=== PATIENT | male | born 1955 | race Caucasian/White ===

== ENCOUNTER 2017-08-23 06:39 | Inpatient (IN) | payer MEDICAID ==
[~2017-08-23] VITALS: Ht 167.6 cm; Wt 94.1 kg
[~2017-08-23 06:39] MED LIST: ALDACTONE25 MG PO; ASPIRIN ADULT L81 M4 PO; ATORVASTATIN CA40 M1 PO; CARVEDILOL12.5 M1 PO; COUMADIN4 MG PO; GLIPIZIDE AND M1 TA1 PO; INVOKANA100 MG PO; LANTUS SOLOS100 U/M1; LANTUS SOLOS100 U/M1 SC; LANTUS SOLOS100 U/M1 SQ; LASIX40 MG PO; LOVAZA1 G1 PO; METFORMIN HCL500 MG PO; MICRO-K10 MEQ PO; NEURONTIN100 MG PO; UNA3I IV; XARELTO20 M1 PO; ZESTRIL5 MG PO
[2017-08-23 07:45] LABS: PLATELET COUNT 329 x10^3mcL (130-400)
[2017-08-23 07:47] LABS: RED CELL DISTRIBUTION WIDTH 16.9 % (11.5-14.5)
[2017-08-23 08:11] LABS: BAND NEUTROPHIL 8 % (0-10); BASOPHIL 0 % (0-2); BILIRUBIN TOTAL 0.63 mg/dL (0.20-1.00); CALCIUM 10.3 mg/dL (8.5-10.1); CARBON DIOXIDE 23.1 mmol/L (21-32); CREATININE SERUM 1.8 mg/dL (0.7-1.3); MONOCYTE 2 % (0-7); POTASSIUM SERUM 4.3 mmol/L (3.5-5.1); SEGMENTED NEUTROPHILS 78 % (37-75)
[2017-08-23 08:12] LABS: PLATELET MORPHOLOGY PLATELETS INCREASED; rbc morphology (normal/abnorm) ABNORMAL (NORMAL)
[2017-08-23 08:22] LABS: ALBUMIN 1.9 g/dL (3.4-5.0); TOTAL PROTEIN, SERUM 8.6 g/dL (6.4-8.2)
[2017-08-23 11:31] LABS: MAGNESIUM 1.1 mg/dL (1.8-2.4)
[2017-08-23 11:33] LABS: CHOLESTEROL/HDL RATIO 3.2
[2017-08-23 11:39] LABS: T3 TOTAL 0.54 ng/mL
[2017-08-23 11:40] LABS: FREE T4 1.11 ng/dL (0.76-1.46); FREE THYROXINE INDEX 1.8 ug/dL (1.4-4.5)
[2017-08-23 11:57] LABS: microscopic required? YES; urine erythrocyte TRACE (NEGATIVE)
[2017-08-23 12:12] LABS: AMPHETAMINE QUAL UR NONE DETECTED (NEG <=1000)
[2017-08-23 13:58] VITALS: BP 129/79
[2017-08-23 15:41] VITALS: BP 142/82
[2017-08-23 17:46] VITALS: BP 124/64
[2017-08-23 20:59] VITALS: BP 125/70
[2017-08-24 05:48] VITALS: BP 146/74
[2017-08-24 07:54] LABS: CALCIUM 9.2 mg/dL (8.5-10.1); CARBON DIOXIDE 25.6 mmol/L (21-32); CREATININE SERUM 1.4 mg/dL (0.7-1.3); MAGNESIUM 2.4 mg/dL (1.8-2.4); PHOSPHOROUS 1.9 mg/dL (2.5-4.9); POTASSIUM SERUM 4.8 mmol/L (3.5-5.1)
[2017-08-24 07:58] LABS: BASOPHIL % 0.4 % (0-2); PLATELET COUNT 268 x10^3mcL (130-400)
[2017-08-24 08:01] LABS: RED CELL DISTRIBUTION WIDTH 16.7 % (11.5-14.5)
[2017-08-24 10:46] VITALS: BP 127/89
[2017-08-24 14:15] VITALS: BP 119/60
[2017-08-24 18:15] VITALS: BP 117/64
[2017-08-24 21:04] VITALS: BP 117/60
[2017-08-25 05:34] VITALS: BP 112/61
[2017-08-25 07:16] LABS: BASOPHIL % 0.4 % (0-2); PLATELET COUNT 275 x10^3mcL (130-400)
[2017-08-25 07:18] LABS: RED CELL DISTRIBUTION WIDTH 16.6 % (11.5-14.5)
[2017-08-25 07:27] LABS: CALCIUM 8.7 mg/dL (8.5-10.1); CARBON DIOXIDE 30.2 mmol/L (21-32); CREATININE SERUM 1.3 mg/dL (0.7-1.3); POTASSIUM SERUM 4.8 mmol/L (3.5-5.1)
[2017-08-25 08:57] VITALS: BP 114/66
[2017-08-25 14:12] VITALS: BP 94/52
[2017-08-25 17:50] VITALS: BP 91/52
[2017-08-25 21:15] VITALS: BP 104/57
[2017-08-26 05:15] VITALS: BP 103/78
[2017-08-26 07:00] LABS: BASOPHIL % 0.3 % (0-2); PLATELET COUNT 265 x10^3mcL (130-400)
[2017-08-26 07:06] LABS: CALCIUM 8.6 mg/dL (8.5-10.1); CARBON DIOXIDE 29.6 mmol/L (21-32); CREATININE SERUM 1.4 mg/dL (0.7-1.3); PHOSPHOROUS 2.8 mg/dL (2.5-4.9); POTASSIUM SERUM 5.4 mmol/L (3.5-5.1)
[2017-08-26 09:45] VITALS: BP 110/65
[2017-08-26 20:54] VITALS: BP 101/68
[2017-08-27 05:48] VITALS: BP 91/65
[2017-08-27 06:45] LABS: BASOPHIL % 0.5 % (0-2); PLATELET COUNT 256 x10^3mcL (130-400)
[2017-08-27 06:52] LABS: RED CELL DISTRIBUTION WIDTH 16.7 % (11.5-14.5)
[2017-08-27 09:38] VITALS: BP 96/52
[2017-08-27 18:19] VITALS: BP 105/58
[2017-08-27 22:06] VITALS: BP 110/60
[2017-08-28 05:45] VITALS: BP 101/60
[2017-08-28 09:29] LABS: BASOPHIL % 0.9 % (0-2); PLATELET COUNT 257 x10^3mcL (130-400)
[2017-08-28 09:33] LABS: RED CELL DISTRIBUTION WIDTH 17.1 % (11.5-14.5)
[2017-08-28 10:47] VITALS: BP 116/76
[2017-08-28 17:31] VITALS: BP 127/63
[2017-08-28 21:46] VITALS: BP 91/53
[2017-08-29 06:19] VITALS: BP 97/68
[2017-08-29 10:18] VITALS: BP 107/68
[2017-08-29 11:23] VITALS: Ht 167.6 cm; Wt 94.1 kg
[2017-08-29 18:05] VITALS: BP 93/57
[2017-08-29 20:49] VITALS: BP 105/61
[2017-08-30 05:23] VITALS: BP 107/63
[2017-08-30 07:40] LABS: BASOPHIL % 0.5 % (0-2); PLATELET COUNT 214 x10^3mcL (130-400)
[2017-08-30 07:57] LABS: RED CELL DISTRIBUTION WIDTH 17.3 % (11.5-14.5)
[2017-08-30 10:55] VITALS: BP 99/69
[2017-08-30 17:45] VITALS: BP 113/71
[2017-08-30 22:06] VITALS: BP 98/65
[2017-08-31 05:53] VITALS: BP 115/79
[2017-08-31 08:24] LABS: CALCIUM 8.5 mg/dL (8.5-10.1); CARBON DIOXIDE 26.2 mmol/L (21-32); CHLORIDE SERUM 104 mmol/L (98-107); CREATININE SERUM 0.9 mg/dL (0.7-1.3); GFR1 > 60 mL/min; GLUCOSE SERUM 84 mg/dL (74-106); SODIUM SERUM 137 mmol/L (136-145)
[2017-08-31 09:58] VITALS: BP 130/81
[2017-08-31 16:59] VITALS: BP 100/65
[2017-08-31 21:21] VITALS: BP 107/62
[2017-09-01 06:40] VITALS: BP 97/65
[2017-09-01 09:08] VITALS: BP 110/71
[2017-09-01 13:42] VITALS: BP 87/50
[2017-09-01 16:58] VITALS: BP 99/68
[2017-09-01 20:21] VITALS: BP 112/68
[2017-09-02 06:26] VITALS: BP 105/67
[2017-09-02 06:47] LABS: BASOPHIL % 0.7 % (0-2); PLATELET COUNT 278 x10^3mcL (130-400)
[2017-09-02 07:18] LABS: RED CELL DISTRIBUTION WIDTH 16.9 % (11.5-14.5)
[2017-09-02 10:07] VITALS: BP 111/66
[2017-09-02 17:45] VITALS: BP 101/66
[2017-09-02 21:01] VITALS: BP 109/62
[2017-09-03 05:37] VITALS: BP 91/64
[2017-09-03 10:01] VITALS: BP 107/64
[2017-09-03 17:25] VITALS: BP 123/69
[2017-09-04 09:23] VITALS: BP 129/74
[2017-09-04 16:16] VITALS: BP 116/72
[2017-09-04] MEDS ORDERED: LEV250 PO (17:06)
[2017-09-04] MEDS ORDERED: ZINC SULFATE220 MG PO (17:08)
[2017-09-04] MEDS ORDERED: CLINDAMYCIN HC300 MG PO (17:08)
[2017-09-04] MEDS ORDERED: SIMETHICONE80 MG CH (17:09)
[2017-09-04] MEDS ORDERED: LAC PO (17:09)
[2017-09-04] MEDS ORDERED: VITC PO (17:10)
[2017-09-04 17:25] VITALS: BP 116/72
[2017-09-04] MEDS ORDERED: COUMADIN2 MG PO (17:42)
== END 2017-09-04 20:37 | DRG 710 ==
LOC: ED 06:39 → DU 09:41 → MU 09:41 → DU 10:59 → MU 08-26 10:02
PROVIDERS: Emergency Medicine; Student in an Organized Health Care Education/Training Program; ADMIT Family Medicine
PROC: 0QBH0ZZ Excision of Left Tibia, Open Approach (ICD-10-PCS; 2017-08-24)
PROC: 0QBG0ZZ Excision of Right Tibia, Open Approach (ICD-10-PCS; principal; 2017-08-24 12:00)
DX: A41.9 Sepsis, unspecified organism (principal); N17.0 Acute kidney failure with tubular necrosis; E43 Unspecified severe protein-calorie malnutrition; D68.69 Other thrombophilia; E11.42 Type 2 diabetes mellitus with diabetic polyneuropathy; E11.621 Type 2 diabetes mellitus with foot ulcer; E11.65 Type 2 diabetes mellitus with hyperglycemia; L03.115 Cellulitis of right lower limb; L03.116 Cellulitis of left lower limb; B96.89 Other specified bacterial agents as the cause of diseases classified elsewhere; B95.61 Methicillin susceptible Staphylococcus aureus infection as the cause of diseases classified elsewhere; L97.414 Non-pressure chronic ulcer of right heel and midfoot with necrosis of bone; L97.524 Non-pressure chronic ulcer of other part of left foot with necrosis of bone; M86.9 Osteomyelitis, unspecified; E87.1 Hypo-osmolality and hyponatremia; I48.91 Unspecified atrial fibrillation; E83.42 Hypomagnesemia; E83.39 Other disorders of phosphorus metabolism; R65.20 Severe sepsis without septic shock; E86.0 Dehydration; I87.2 Venous insufficiency (chronic) (peripheral); F32.9 Major depressive disorder, single episode, unspecified; I87.8 Other specified disorders of veins; D64.9 Anemia, unspecified; E66.9 Obesity, unspecified; Z68.33 Body mass index [BMI] 33.0-33.9, adult; Z79.4 Long term (current) use of insulin; Z91.14 Patient's other noncompliance with medication regimen
CPT/HCPCS: 36600; 82962; 83880; 84439; 94150; 97110-GP; 97116-GP; 97139; 97530-GP; 97542-GP; J0690; J0696; J0713; J1815; J1956; J2250; J2704; J3010; J3475; J3490; J7030; Q0092

== ENCOUNTER 2017-09-11 18:06 | Inpatient (IN) | payer MEDICAID ==
[~2017-09-11] VITALS: Ht 167.6 cm; Wt 99.3 kg
[~2017-09-11 18:06] MED LIST changes: +CLINDAMYCIN HC300 MG PO; +COUMADIN2 MG PO; +LAC PO; +LEV250 PO; +SIMETHICONE80 MG CH; +VITC PO; +ZINC SULFATE220 MG PO
[2017-09-11 20:45] LABS: BASOPHIL % 1.7 % (0-2); PLATELET COUNT 305 x10^3mcL (130-400)
[2017-09-11 20:47] LABS: RED CELL DISTRIBUTION WIDTH 19.4 % (11.5-14.5)
[2017-09-11 20:52] LABS: BILIRUBIN TOTAL 0.4 mg/dL (0.20-1.00); C REACTIVE PROTEIN 8.3 mg/dL (<=0.9); CALCIUM 9.7 mg/dL (8.5-10.1); CREATININE SERUM 1.3 mg/dL (0.7-1.3); POTASSIUM SERUM 4.3 mmol/L (3.5-5.1); TOTAL PROTEIN, SERUM 7.5 g/dL (6.4-8.2)
[2017-09-11 20:53] LABS: ALBUMIN 1.9 g/dL (3.4-5.0)
[2017-09-11 20:55] LABS: CARBON DIOXIDE 41.5 mmol/L (21-32)
[2017-09-11] MEDS ORDERED: PROZ10 PO (21:09)
[2017-09-11] MEDS ORDERED: NYSTATIN1 EAC1 TOP (21:10)
[2017-09-11] MEDS ORDERED: FERROUS SULFAT325 M2 PO (21:10)
[2017-09-11] MEDS ORDERED: PROSTATE HEALT1 EACH PO (21:11)
[2017-09-11] MEDS ORDERED: TYLENOL325 M1 PO (21:13)
[2017-09-11] MEDS ORDERED: ZESTRIL5 MG PO (21:14)
[2017-09-11] MEDS ORDERED: COREG12.5 MG PO (21:14)
[2017-09-11] MEDS ORDERED: ALDACTONE25 MG PO (21:15)
[2017-09-11] MEDS ORDERED: NEURONTIN100 MG PO (21:15)
[2017-09-11] MEDS ORDERED: FLORASTOR1 CAP PO (21:16)
[2017-09-11] MEDS ORDERED: INVOKANA100 MG PO (21:16)
[2017-09-11] MEDS ORDERED: CLEOCIN HCL300 MG PO (21:17)
[2017-09-11] MEDS ORDERED: LEVAQUIN750 MG PO (21:17)
[2017-09-11] MEDS ORDERED: FISH OIL1000 MG PO (21:18)
[2017-09-11] MEDS ORDERED: ASPIR 8181 MG PO (21:18)
[2017-09-11] MEDS ORDERED: LANTUS SOLOS100 U/M1 SQ (21:19)
[2017-09-11 21:43] LABS: T3 TOTAL 0.78 ng/mL
[2017-09-11 21:51] LABS: MAGNESIUM 1.6 mg/dL (1.8-2.4)
[2017-09-11 21:59] LABS: CHOLESTEROL/HDL RATIO 2.3
[2017-09-11 22:20] LABS: FREE T4 0.99 ng/dL (0.76-1.46); FREE THYROXINE INDEX 2.3 ug/dL (1.4-4.5); T4(THYROXINE) 5.9 ug/dL (4.7-13.3)
[2017-09-11 22:21] VITALS: BP 100/51
[2017-09-12 05:31] VITALS: BP 107/64
[2017-09-12 07:29] LABS: BASOPHIL % 0.9 % (0-2); PLATELET COUNT 285 x10^3mcL (130-400)
[2017-09-12 07:30] LABS: RED CELL DISTRIBUTION WIDTH 19.3 % (11.5-14.5)
[2017-09-12 07:48] LABS: CALCIUM 10.3 mg/dL (8.5-10.1); CARBON DIOXIDE 38.4 mmol/L (21-32); CREATININE SERUM 1.4 mg/dL (0.7-1.3); POTASSIUM SERUM 5.5 mmol/L (3.5-5.1)
[2017-09-12 09:27] VITALS: BP 107/66
[2017-09-12 13:35] VITALS: BP 116/59
[2017-09-12 17:59] VITALS: BP 114/64
[2017-09-12 20:28] VITALS: BP 117/71
[2017-09-13 06:06] VITALS: BP 105/61
[2017-09-13 07:35] LABS: BASOPHIL % 1.9 % (0-2); PLATELET COUNT 235 x10^3mcL (130-400)
[2017-09-13 07:43] LABS: RED CELL DISTRIBUTION WIDTH 18.9 % (11.5-14.5)
[2017-09-13 08:14] LABS: CALCIUM 9.4 mg/dL (8.5-10.1); CARBON DIOXIDE 33.6 mmol/L (21-32); CHLORIDE SERUM 99 mmol/L (98-107); GFR1 > 60 mL/min; GLUCOSE SERUM 136 mg/dL (74-106); MAGNESIUM 1.6 mg/dL (1.8-2.4); POTASSIUM SERUM 4.7 mmol/L (3.5-5.1); SODIUM SERUM 136 mmol/L (136-145)
[2017-09-13 09:34] VITALS: BP 100/64
[2017-09-13 13:23] VITALS: BP 102/65
[2017-09-13 17:19] VITALS: BP 97/61
[2017-09-13 21:09] VITALS: BP 100/69
[2017-09-14 03:00] LABS: CALCIUM 9.4 mg/dL (8.5-10.1); CARBON DIOXIDE 32.1 mmol/L (21-32); CHLORIDE SERUM 100 mmol/L (98-107); CREATININE SERUM 1.1 mg/dL (0.7-1.3); GFR1 > 60 mL/min; GLUCOSE SERUM 173 mg/dL (74-106); MAGNESIUM 1.9 mg/dL (1.8-2.4); POTASSIUM SERUM 4.8 mmol/L (3.5-5.1); SODIUM SERUM 136 mmol/L (136-145)
[2017-09-14 03:06] LABS: PLATELET COUNT 242 x10^3mcL (130-400)
[2017-09-14 03:07] LABS: RED CELL DISTRIBUTION WIDTH 17.5 % (11.5-14.5)
[2017-09-14 06:08] VITALS: BP 109/64
[2017-09-14 09:13] VITALS: BP 101/73
[2017-09-14 09:51] LABS: RED BLOOD CELLS 3.4 M/mm3 (4.52-5.90)
[2017-09-14 10:32] LABS: IRON 38 ug/dL (65-170)
[2017-09-14 10:41] LABS: TOTAL IRON BINDING CAPACITY 240 ug/dL (250-450)
[2017-09-14 12:02] VITALS: BP 103/65
[2017-09-14 16:08] VITALS: BP 113/76
[2017-09-14 21:26] VITALS: BP 102/68
[2017-09-15 06:44] VITALS: BP 104/65
[2017-09-15 07:10] LABS: PLATELET COUNT 226 x10^3mcL (130-400)
[2017-09-15 07:28] LABS: CALCIUM 9.4 mg/dL (8.5-10.1); CHLORIDE SERUM 100 mmol/L (98-107); CREATININE SERUM 1.1 mg/dL (0.7-1.3); GFR1 > 60 mL/min; GLUCOSE SERUM 110 mg/dL (74-106); PHOSPHOROUS 3.5 mg/dL (2.5-4.9); POTASSIUM SERUM 4.9 mmol/L (3.5-5.1); SODIUM SERUM 137 mmol/L (136-145)
[2017-09-15 08:35] LABS: RED CELL DISTRIBUTION WIDTH 18.9 % (11.5-14.5)
[2017-09-15 10:07] VITALS: BP 109/63
[2017-09-15 14:17] VITALS: BP 85/57
[2017-09-15 17:15] VITALS: BP 104/70
[2017-09-15 21:40] VITALS: BP 97/62
[2017-09-16 05:30] VITALS: BP 110/68
[2017-09-16 07:31] LABS: BASOPHIL % 1.2 % (0-2); PLATELET COUNT 230 x10^3mcL (130-400)
[2017-09-16 07:36] LABS: RED CELL DISTRIBUTION WIDTH 18.8 % (11.5-14.5)
[2017-09-16 07:49] LABS: CARBON DIOXIDE 32.2 mmol/L (21-32); CHLORIDE SERUM 101 mmol/L (98-107); CREATININE SERUM 1.1 mg/dL (0.7-1.3); GFR1 > 60 mL/min; GLUCOSE SERUM 103 mg/dL (74-106); PHOSPHOROUS 3.4 mg/dL (2.5-4.9); POTASSIUM SERUM 4.6 mmol/L (3.5-5.1); SODIUM SERUM 138 mmol/L (136-145)
[2017-09-16 09:13] VITALS: BP 112/65
[2017-09-16 13:54] VITALS: BP 114/59
[2017-09-16 21:32] VITALS: BP 102/59
[2017-09-17 06:14] VITALS: BP 119/68
[2017-09-17 06:43] LABS: BASOPHIL % 0.9 % (0-2); PLATELET COUNT 250 x10^3mcL (130-400)
[2017-09-17 06:52] LABS: RED CELL DISTRIBUTION WIDTH 18.8 % (11.5-14.5)
[2017-09-17 09:17] VITALS: BP 103/63
[2017-09-17 21:18] VITALS: BP 114/71
[2017-09-18 06:20] VITALS: BP 115/70
[2017-09-18 09:10] VITALS: BP 122/75
[2017-09-18 17:05] VITALS: BP 132/72
[2017-09-18 21:04] VITALS: BP 100/62
[2017-09-19 04:28] LABS: PLATELET COUNT 288 x10^3mcL (130-400)
[2017-09-19 04:33] LABS: RED CELL DISTRIBUTION WIDTH 19.1 % (11.5-14.5)
[2017-09-19 04:35] LABS: CALCIUM 9.1 mg/dL (8.5-10.1); CARBON DIOXIDE 30.2 mmol/L (21-32); CHLORIDE SERUM 101 mmol/L (98-107); GFR1 > 60 mL/min; GLUCOSE SERUM 79 mg/dL (74-106); PHOSPHOROUS 2.6 mg/dL (2.5-4.9); POTASSIUM SERUM 4.5 mmol/L (3.5-5.1); SODIUM SERUM 137 mmol/L (136-145)
[2017-09-19 05:33] VITALS: BP 133/72
[2017-09-19 09:03] VITALS: BP 124/80
[2017-09-19 13:35] VITALS: BP 120/72
[2017-09-19 18:40] VITALS: BP 118/70
[2017-09-19 22:26] VITALS: BP 113/47; BP 124/70
[2017-09-20 04:16] LABS: CALCIUM 9.1 mg/dL (8.5-10.1); CARBON DIOXIDE 30.8 mmol/L (21-32); CHLORIDE SERUM 101 mmol/L (98-107); CREATININE SERUM 1.1 mg/dL (0.7-1.3); GFR1 > 60 mL/min; GLUCOSE SERUM 141 mg/dL (74-106); PHOSPHOROUS 2.9 mg/dL (2.5-4.9); POTASSIUM SERUM 4.7 mmol/L (3.5-5.1); SODIUM SERUM 138 mmol/L (136-145)
[2017-09-20 04:32] LABS: BASOPHIL % 0.9 % (0-2); PLATELET COUNT 300 x10^3mcL (130-400)
[2017-09-20 05:39] VITALS: BP 139/75
[2017-09-20 09:00] VITALS: BP 119/72
[2017-09-20 23:02] VITALS: BP 115/73
[2017-09-21 06:38] VITALS: BP 117/76
[2017-09-21 07:06] LABS: BASOPHIL % 0.9 % (0-2); PLATELET COUNT 312 x10^3mcL (130-400)
[2017-09-21 07:12] LABS: RED CELL DISTRIBUTION WIDTH 19.7 % (11.5-14.5)
[2017-09-21 07:35] LABS: CALCIUM 9.2 mg/dL (8.5-10.1); CARBON DIOXIDE 30.7 mmol/L (21-32); CHLORIDE SERUM 102 mmol/L (98-107); GFR1 > 60 mL/min; GLUCOSE SERUM 85 mg/dL (74-106); PHOSPHOROUS 2.8 mg/dL (2.5-4.9); POTASSIUM SERUM 4.6 mmol/L (3.5-5.1); SODIUM SERUM 140 mmol/L (136-145)
[2017-09-21 09:30] VITALS: BP 112/66
[2017-09-21 18:30] VITALS: BP 106/69
[2017-09-21 21:55] VITALS: BP 111/73
[2017-09-21 23:11] LABS: microscopic required? NO
[2017-09-21 23:22] LABS: urine erythrocyte NEGATIVE (NEGATIVE)
[2017-09-21 23:31] LABS: AMPHETAMINE QUAL UR NONE DETECTED (NEG <=1000)
[2017-09-22 05:04] VITALS: BP 98/64
[2017-09-22 07:43] LABS: BASOPHIL % 0.8 % (0-2); PLATELET COUNT 316 x10^3mcL (130-400)
[2017-09-22 07:45] LABS: RED CELL DISTRIBUTION WIDTH 19.5 % (11.5-14.5)
[2017-09-22 07:59] LABS: CALCIUM 9.4 mg/dL (8.5-10.1); CHLORIDE SERUM 102 mmol/L (98-107); CREATININE SERUM 1.1 mg/dL (0.7-1.3); GFR1 > 60 mL/min; GLUCOSE SERUM 146 mg/dL (74-106); PHOSPHOROUS 2.9 mg/dL (2.5-4.9); POTASSIUM SERUM 4.4 mmol/L (3.5-5.1); SODIUM SERUM 139 mmol/L (136-145)
[2017-09-22 09:10] VITALS: BP 107/70
[2017-09-22 17:12] VITALS: BP 124/76
[2017-09-22 21:38] VITALS: BP 121/71
[2017-09-23 00:30] VITALS: BP 121/71
[2017-09-23 05:46] VITALS: BP 94/60
[2017-09-23 06:29] LABS: BASOPHIL % 0.7 % (0-2); PLATELET COUNT 295 x10^3mcL (130-400)
[2017-09-23 06:52] LABS: RED CELL DISTRIBUTION WIDTH 19.3 % (11.5-14.5)
[2017-09-23 06:53] LABS: CALCIUM 8.5 mg/dL (8.5-10.1); CARBON DIOXIDE 30.5 mmol/L (21-32); CREATININE SERUM 1.4 mg/dL (0.7-1.3); MAGNESIUM 1.9 mg/dL (1.8-2.4); PHOSPHOROUS 3.2 mg/dL (2.5-4.9); POTASSIUM SERUM 4.4 mmol/L (3.5-5.1)
[2017-09-23 08:19] VITALS: BP 115/62
[2017-09-23 18:01] VITALS: BP 104/51
[2017-09-23 21:28] VITALS: BP 102/70
[2017-09-24 05:29] VITALS: BP 139/79
[2017-09-24 06:33] LABS: BASOPHIL % 0.5 % (0-2); PLATELET COUNT 288 x10^3mcL (130-400)
[2017-09-24 06:51] LABS: CALCIUM 9.5 mg/dL (8.5-10.1); CARBON DIOXIDE 30.3 mmol/L (21-32); CHLORIDE SERUM 104 mmol/L (98-107); CREATININE SERUM 1.2 mg/dL (0.7-1.3); GFR1 > 60 mL/min; GLUCOSE SERUM 84 mg/dL (74-106); POTASSIUM SERUM 5.1 mmol/L (3.5-5.1); SODIUM SERUM 140 mmol/L (136-145)
[2017-09-24 09:40] VITALS: BP 109/67
[2017-09-24 16:30] VITALS: BP 109/65
[2017-09-24 22:01] VITALS: BP 94/56
[2017-09-25 05:35] VITALS: BP 106/64
[2017-09-25 06:37] LABS: CALCIUM 8.8 mg/dL (8.5-10.1); CARBON DIOXIDE 30.1 mmol/L (21-32); CHLORIDE SERUM 102 mmol/L (98-107); GFR1 > 60 mL/min; GLUCOSE SERUM 87 mg/dL (74-106); POTASSIUM SERUM 4.9 mmol/L (3.5-5.1); SODIUM SERUM 136 mmol/L (136-145)
[2017-09-25 06:41] LABS: BASOPHIL % 0.2 % (0-2); PLATELET COUNT 259 x10^3mcL (130-400); RED CELL DISTRIBUTION WIDTH 19.5 % (11.5-14.5)
[2017-09-25 10:18] VITALS: BP 107/70
[2017-09-25 17:54] VITALS: BP 107/70
[2017-09-25 22:54] VITALS: BP 125/82
[2017-09-26 05:34] VITALS: BP 104/80
[2017-09-26 06:28] LABS: BASOPHIL % 0.7 % (0-2); PLATELET COUNT 282 x10^3mcL (130-400)
[2017-09-26 06:35] LABS: RED CELL DISTRIBUTION WIDTH 19.3 % (11.5-14.5)
[2017-09-26 07:03] LABS: CALCIUM 9.4 mg/dL (8.5-10.1); CARBON DIOXIDE 31.3 mmol/L (21-32); CHLORIDE SERUM 100 mmol/L (98-107); CREATININE SERUM 1.1 mg/dL (0.7-1.3); GFR1 > 60 mL/min; GLUCOSE SERUM 80 mg/dL (74-106); MAGNESIUM 1.9 mg/dL (1.8-2.4); PHOSPHOROUS 2.8 mg/dL (2.5-4.9); POTASSIUM SERUM 5.1 mmol/L (3.5-5.1); SODIUM SERUM 137 mmol/L (136-145)
[2017-09-26 18:15] VITALS: BP 105/79
[2017-09-26 20:43] VITALS: BP 111/69
[2017-09-27 05:30] VITALS: BP 115/90
[2017-09-27 08:55] VITALS: BP 121/87
[2017-09-27 18:00] VITALS: BP 115/77
[2017-09-27 20:53] VITALS: BP 112/75
[2017-09-28 06:04] VITALS: BP 123/78
[2017-09-28 09:52] VITALS: BP 127/81
[2017-09-28 17:15] VITALS: BP 108/76
[2017-09-28 22:19] VITALS: BP 113/77
[2017-09-29 06:14] VITALS: BP 111/74
[2017-09-29 06:54] LABS: BASOPHIL % 0.6 % (0-2); PLATELET COUNT 344 x10^3mcL (130-400); RED CELL DISTRIBUTION WIDTH 19.5 % (11.5-14.5)
[2017-09-29 08:39] VITALS: BP 117/72
[2017-09-29 17:47] VITALS: BP 101/71
[2017-09-29 21:06] VITALS: BP 96/66
[2017-09-30 05:15] VITALS: BP 124/80
[2017-09-30 08:02] VITALS: BP 117/74
[2017-09-30 16:01] VITALS: BP 111/65
[2017-09-30 22:32] VITALS: BP 127/70
[2017-10-01 07:14] VITALS: BP 111/70
[2017-10-01 10:55] VITALS: BP 114/60
[2017-10-01 18:10] VITALS: BP 115/79
[2017-10-01 21:59] VITALS: BP 113/75
[2017-10-02 05:59] VITALS: BP 127/80
[2017-10-02 07:40] LABS: CALCIUM 9.5 mg/dL (8.5-10.1); CARBON DIOXIDE 28.1 mmol/L (21-32); CHLORIDE SERUM 104 mmol/L (98-107); CREATININE SERUM 0.9 mg/dL (0.7-1.3); GFR1 > 60 mL/min; GLUCOSE SERUM 112 mg/dL (74-106); MAGNESIUM 1.8 mg/dL (1.8-2.4); PHOSPHOROUS 2.5 mg/dL (2.5-4.9); POTASSIUM SERUM 4.9 mmol/L (3.5-5.1); SODIUM SERUM 140 mmol/L (136-145)
[2017-10-02 07:47] LABS: BASOPHIL % 0.7 % (0-2); PLATELET COUNT 377 x10^3mcL (130-400)
[2017-10-02 07:50] LABS: RED CELL DISTRIBUTION WIDTH 20.8 % (11.5-14.5)
[2017-10-02 07:51] LABS: rbc morphology (normal/abnorm) ABNORMAL (NORMAL)
[2017-10-02 09:47] VITALS: BP 118/72
[2017-10-02 18:11] VITALS: BP 120/85
[2017-10-02 19:50] VITALS: BP 123/82
[2017-10-03 06:07] VITALS: BP 116/70
[2017-10-03 18:19] VITALS: BP 117/81
[2017-10-03 20:56] VITALS: BP 114/75
[2017-10-04 05:22] VITALS: BP 140/89
[2017-10-04 08:56] VITALS: BP 134/87
[2017-10-04 15:58] VITALS: BP 100/65
[2017-10-04 22:30] VITALS: BP 111/70
[2017-10-05 06:29] VITALS: BP 119/78
[2017-10-05 08:32] VITALS: BP 126/84
[2017-10-05 16:55] VITALS: BP 109/72
[2017-10-05 22:06] VITALS: BP 122/83
[2017-10-06 04:46] VITALS: BP 122/83
[2017-10-06 05:22] VITALS: BP 117/80
[2017-10-06 07:16] LABS: BASOPHIL % 1.1 % (0-2); PLATELET COUNT 324 x10^3mcL (130-400)
[2017-10-06 07:31] LABS: CALCIUM 8.9 mg/dL (8.5-10.1); CHLORIDE SERUM 105 mmol/L (98-107); CREATININE SERUM 0.8 mg/dL (0.7-1.3); GFR1 > 60 mL/min; GLUCOSE SERUM 111 mg/dL (74-106); POTASSIUM SERUM 4.6 mmol/L (3.5-5.1); SODIUM SERUM 145 mmol/L (136-145)
[2017-10-06 09:38] VITALS: BP 105/62
[2017-10-06 12:28] VITALS: BP 109/76
[2017-10-06 16:27] VITALS: BP 122/77
[2017-10-06 21:10] VITALS: BP 100/63
[2017-10-07 05:19] VITALS: BP 116/74
[2017-10-07 09:31] VITALS: BP 120/79
[2017-10-07 13:26] VITALS: BP 107/71
[2017-10-07 17:40] VITALS: BP 101/61
[2017-10-07 21:13] VITALS: BP 120/71
[2017-10-08 04:57] VITALS: BP 156/56
[2017-10-08 08:15] VITALS: BP 106/60
[2017-10-08 17:28] VITALS: BP 167/73
[2017-10-08 21:58] VITALS: BP 95/65
[2017-10-09 05:09] VITALS: BP 123/84
[2017-10-09 09:12] VITALS: BP 126/67
[2017-10-09 10:59] VITALS: BP 108/59
[2017-10-09 16:50] VITALS: BP 116/76
[2017-10-09 22:02] VITALS: BP 106/68
[2017-10-10 05:54] VITALS: BP 124/79
[2017-10-10 08:33] VITALS: BP 117/75
[2017-10-10 18:02] VITALS: BP 118/74
[2017-10-10 21:33] VITALS: BP 96/68
[2017-10-11 05:24] VITALS: BP 115/76
[2017-10-11 09:55] VITALS: BP 116/72
[2017-10-11 17:15] VITALS: BP 106/67
[2017-10-11 20:59] VITALS: BP 100/73
[2017-10-12 05:58] VITALS: BP 119/72
[2017-10-12 09:05] VITALS: BP 119/76
[2017-10-12 18:00] VITALS: BP 104/72
[2017-10-12 18:24] VITALS: BP 104/72
[2017-10-12 21:39] VITALS: BP 104/67
[2017-10-13 05:37] VITALS: BP 112/66
[2017-10-13 09:43] VITALS: BP 118/63
[2017-10-13 21:07] VITALS: BP 95/64
[2017-10-14 05:46] VITALS: BP 107/67
[2017-10-14 09:12] VITALS: BP 108/57
[2017-10-14 17:00] VITALS: BP 128/78
[2017-10-14 20:55] VITALS: BP 105/65
[2017-10-15 05:03] VITALS: BP 122/84
[2017-10-15 11:00] VITALS: BP 112/74
[2017-10-15 18:11] VITALS: BP 109/72
[2017-10-15 20:58] VITALS: BP 114/71
[2017-10-16 06:11] VITALS: BP 120/79
[2017-10-16 09:10] VITALS: BP 108/61
[2017-10-16 13:30] VITALS: BP 107/78
[2017-10-16 14:56] VITALS: BP 114/66
[2017-10-16 17:31] VITALS: BP 112/69
[2017-10-16 19:00] VITALS: Ht 167.6 cm; Wt 99.3 kg
[2017-10-16 21:06] VITALS: BP 105/69
[2017-10-17 05:09] VITALS: BP 103/70
[2017-10-17 08:50] VITALS: BP 96/52
[2017-10-17 12:28] VITALS: BP 110/65
[2017-10-17 12:28] LABS: BASOPHIL % 1.6 % (0-2); PLATELET COUNT 229 x10^3mcL (130-400)
[2017-10-17 12:29] LABS: RED CELL DISTRIBUTION WIDTH 23.7 % (11.5-14.5)
[2017-10-17 16:36] VITALS: BP 113/86
[2017-10-17 21:02] VITALS: BP 104/67
[2017-10-18 05:16] VITALS: BP 109/80
[2017-10-18 09:33] VITALS: BP 133/73
[2017-10-18 16:34] VITALS: BP 117/75
[2017-10-18 21:05] VITALS: BP 106/70
[2017-10-19 05:24] VITALS: BP 105/66
[2017-10-19 09:07] VITALS: BP 123/83
[2017-10-19 16:15] VITALS: BP 102/66
[2017-10-19 20:08] VITALS: BP 123/71
[2017-10-20 05:20] VITALS: BP 116/83
[2017-10-20 09:42] VITALS: BP 110/71
[2017-10-20 12:16] VITALS: BP 123/81
[2017-10-20 17:26] VITALS: BP 122/77
[2017-10-20 21:21] VITALS: BP 118/68
[2017-10-21 06:09] VITALS: BP 122/66
[2017-10-21 09:16] VITALS: BP 111/66
[2017-10-21 12:18] VITALS: BP 102/65
[2017-10-21 16:26] VITALS: BP 106/70
[2017-10-21 21:09] VITALS: BP 109/67
[2017-10-22 05:20] VITALS: BP 149/83
[2017-10-22 08:37] VITALS: BP 133/84
[2017-10-22 18:33] VITALS: BP 122/69
[2017-10-22 21:49] VITALS: BP 107/73
[2017-10-23 06:01] VITALS: BP 116/72
[2017-10-23 11:15] VITALS: BP 110/77
[2017-10-23 17:23] VITALS: BP 117/71
[2017-10-23 21:11] VITALS: BP 111/74
[2017-10-24 04:53] VITALS: BP 127/79
[2017-10-24 08:21] VITALS: BP 121/75
[2017-10-24 16:40] VITALS: BP 107/79
[2017-10-24 21:15] VITALS: BP 116/78
[2017-10-25 05:27] VITALS: BP 129/81
[2017-10-25 09:03] VITALS: BP 128/87
[2017-10-25 18:39] VITALS: BP 125/83
[2017-10-25 21:46] VITALS: BP 121/71
[2017-10-26 06:08] VITALS: BP 122/86
[2017-10-26 08:58] VITALS: BP 121/77
[2017-10-26 16:04] VITALS: BP 121/77
[2017-10-26 16:12] VITALS: BP 111/77
[2017-10-26] MEDS ORDERED: COU2.5 PO (16:32)
[2017-10-26] MEDS ORDERED: LEVEMIR100 U/M1 SC (16:34)
[2017-10-27] MEDS ORDERED: BACTROBAN21 (22:29)
[2017-10-27] MEDS ORDERED: HIBICLENS118 ML TOP (22:29)
== END 2017-10-26 19:55 | DRG 305 ==
LOC: ED 18:06 → DU 20:20 → MU 20:20 → DU 20:20 → ED 21:40 → DU 22:01 → MU 09-19 15:22 → DU 10-23 05:00 → MU 10-26 07:32
PROVIDERS: Emergency Medicine; Family Medicine; Family Medicine Sports Medicine; Student in an Organized Health Care Education/Training Program; Surgery
PROC: 0JBQ0ZZ Excision of Right Foot Subcutaneous Tissue and Fascia, Open Approach (ICD-10-PCS; 2017-09-22)
PROC: 0Y6G0ZZ Detachment at Left Knee Region, Open Approach (ICD-10-PCS; principal; 2017-09-22 12:00)
PROC: 0YBM0ZZ Excision of Right Foot, Open Approach (ICD-10-PCS; 2017-10-02)
PROC: 0YBM0ZZ Excision of Right Foot, Open Approach (ICD-10-PCS; 2017-10-09)
PROC: 0HBRXZZ Excision of Toe Nail, External Approach (ICD-10-PCS; 2017-10-09)
PROC: 0HBRXZZ Excision of Toe Nail, External Approach (ICD-10-PCS; 2017-10-09)
PROC: 0HBRXZZ Excision of Toe Nail, External Approach (ICD-10-PCS; 2017-10-09)
PROC: 0HBRXZZ Excision of Toe Nail, External Approach (ICD-10-PCS; 2017-10-09)
PROC: 0HBRXZZ Excision of Toe Nail, External Approach (ICD-10-PCS; 2017-10-09)
PROC: 0JBQ0ZZ Excision of Right Foot Subcutaneous Tissue and Fascia, Open Approach (ICD-10-PCS; 2017-10-16)
PROC: 0YBM0ZZ Excision of Right Foot, Open Approach (ICD-10-PCS; 2017-10-23)
DX: E11.52 Type 2 diabetes mellitus with diabetic peripheral angiopathy with gangrene (principal); N17.0 Acute kidney failure with tubular necrosis; E43 Unspecified severe protein-calorie malnutrition; I50.43 Acute on chronic combined systolic (congestive) and diastolic (congestive) heart failure; L89.614 Pressure ulcer of right heel, stage 4; M86.172 Other acute osteomyelitis, left ankle and foot; D68.69 Other thrombophilia; E11.42 Type 2 diabetes mellitus with diabetic polyneuropathy; E11.621 Type 2 diabetes mellitus with foot ulcer; E11.65 Type 2 diabetes mellitus with hyperglycemia; E83.42 Hypomagnesemia; L97.418 Non-pressure chronic ulcer of right heel and midfoot with other specified severity; L97.424 Non-pressure chronic ulcer of left heel and midfoot with necrosis of bone; L03.114 Cellulitis of left upper limb; J98.11 Atelectasis; B95.62 Methicillin resistant Staphylococcus aureus infection as the cause of diseases classified elsewhere; E83.52 Hypercalcemia; E78.00 Pure hypercholesterolemia, unspecified; I25.10 Atherosclerotic heart disease of native coronary artery without angina pectoris; M81.0 Age-related osteoporosis without current pathological fracture; I48.2 Chronic atrial fibrillation; B35.1 Tinea unguium; E02 Subclinical iodine-deficiency hypothyroidism; E11.69 Type 2 diabetes mellitus with other specified complication; E78.5 Hyperlipidemia, unspecified; E66.9 Obesity, unspecified; Z79.4 Long term (current) use of insulin; Z95.5 Presence of coronary angioplasty implant and graft; Z83.3 Family history of diabetes mellitus; Z82.49 Family history of ischemic heart disease and other diseases of the circulatory system; Z80.9 Family history of malignant neoplasm, unspecified; Z80.3 Family history of malignant neoplasm of breast; Z78.1 Physical restraint status; Z68.41 Body mass index [BMI] 40.0-44.9, adult
CPT/HCPCS: 82962; 83880; 84439; 94150; 97110-GP; 97116-GP; 97164; 97530-GP; 97542-GP; A9500; J0690; J1644; J1650; J1815; J1885; J1956; J2250; J2405; J2543; J2785; J3010; J3370; J3475; J3490; J7030; J7040; J7042; J7050; J7620; Q0092

== ENCOUNTER 2018-01-10 09:52 | Inpatient (IN) | payer OTHER ==
[~2018-01-10] VITALS: Ht 167.6 cm; Wt 123.0 kg
[~2018-01-10 09:52] MED LIST changes: +ASPIR 8181 MG PO; +BACTROBAN21; +CLEOCIN HCL300 MG PO; +COREG12.5 MG PO; +COU2.5 PO; +FERROUS SULFAT325 M2 PO; +FISH OIL1000 MG PO; +FLORASTOR1 CAP PO; +HIBICLENS118 ML TOP; +LEVAQUIN750 MG PO; +LEVEMIR100 U/M1 SC; +NYSTATIN1 EAC1 TOP; +PROSTATE HEALT1 EACH PO; +PROZ10 PO; +TYLENOL325 M1 PO
[2018-01-10 11:04] LABS: BASOPHIL % 0.7 % (0-2)
[2018-01-10 11:06] LABS: PLATELET COUNT 126 x10^3mcL (130-400); RED CELL DISTRIBUTION WIDTH 19.9 % (11.5-14.5)
[2018-01-10 11:25] LABS: BILIRUBIN TOTAL 1.3 mg/dL (0.20-1.00); CALCIUM 8.9 mg/dL (8.5-10.1); CARBON DIOXIDE 25.5 mmol/L (21-32); CREATININE SERUM 1.8 mg/dL (0.7-1.3); TOTAL PROTEIN, SERUM 7.4 g/dL (6.4-8.2)
[2018-01-10 11:29] LABS: ALBUMIN 2.8 g/dL (3.4-5.0)
[2018-01-10 11:32] LABS: UA SPECIFIC GRAVITY 1.025 (1.005-1.035); microscopic required? YES; urine erythrocyte 2+ (NEGATIVE)
[2018-01-10 13:08] LABS: MAGNESIUM 2.1 mg/dL (1.8-2.4); PHOSPHOROUS 4.7 mg/dL (2.5-4.9)
[2018-01-10 13:12] LABS: CHOLESTEROL/HDL RATIO 3.3
[2018-01-10 13:16] LABS: FREE T4 1.07 ng/dL (0.76-1.46)
[2018-01-10 13:19] LABS: FREE THYROXINE INDEX 1.6 ug/dL (1.4-4.5); T4(THYROXINE) 4.6 ug/dL (4.7-13.3)
[2018-01-10 13:39] LABS: AMPHETAMINE QUAL UR NONE DETECTED (NEG <=1000)
[2018-01-10 14:05] LABS: T3 TOTAL 0.57 ng/mL
[2018-01-10 15:56] VITALS: BP 111/72
[2018-01-10 18:27] VITALS: BP 111/72
[2018-01-10 20:40] VITALS: BP 88/68
[2018-01-11] VITALS (7 sets, daily range): BP systolic 85–127; BP diastolic 51–92
[2018-01-11 07:32] LABS: CALCIUM 8.2 mg/dL (8.5-10.1); CARBON DIOXIDE 24.4 mmol/L (21-32); CREATININE SERUM 1.9 mg/dL (0.7-1.3); POTASSIUM SERUM 5.1 mmol/L (3.5-5.1)
[2018-01-11 07:36] LABS: BASOPHIL % 0.5 % (0-2)
[2018-01-11 07:37] LABS: PLATELET COUNT 121 x10^3mcL (130-400)
[2018-01-12] VITALS (7 sets, daily range): BP systolic 86–117; BP diastolic 46–83; Ht 167.6 cm; Wt 123.0 kg
[2018-01-12 05:44] LABS: BASOPHIL % 0.4 % (0-2); PLATELET COUNT 162 x10^3mcL (130-400)
[2018-01-12 05:45] LABS: RED CELL DISTRIBUTION WIDTH 19.8 % (11.5-14.5)
[2018-01-12 05:49] LABS: CALCIUM 8.3 mg/dL (8.5-10.1); CREATININE SERUM 2.1 mg/dL (0.7-1.3); MAGNESIUM 1.8 mg/dL (1.8-2.4); PHOSPHOROUS 5.1 mg/dL (2.5-4.9); POTASSIUM SERUM 5.2 mmol/L (3.5-5.1)
== END 2018-01-12 10:20 | disposition expired | DRG 279 ==
LOC: ED 09:52 → DU 12:14 → EDBEDREQ 12:14 → DU 15:16 → IC 01-11 22:58
PROVIDERS: Emergency Medicine Emergency Medical Services; Family Medicine
PROC: 5A12012 Performance of Cardiac Output, Single, Manual (ICD-10-PCS; principal; 2018-01-10)
PROC: 0JBQ0ZZ Excision of Right Foot Subcutaneous Tissue and Fascia, Open Approach (ICD-10-PCS; 2018-01-11)
PROC: 02HV33Z Insertion of Infusion Device into Superior Vena Cava, Percutaneous Approach (ICD-10-PCS; 2018-01-12)
PROC: 5A1935Z Respiratory Ventilation, Less than 24 Consecutive Hours (ICD-10-PCS; 2018-01-12)
PROC: 0BH17EZ Insertion of Endotracheal Airway into Trachea, Via Natural or Artificial Opening (ICD-10-PCS; 2018-01-12)
DX: K72.90 Hepatic failure, unspecified without coma (principal); N17.0 Acute kidney failure with tubular necrosis; I46.9 Cardiac arrest, cause unspecified; J69.0 Pneumonitis due to inhalation of food and vomit; E43 Unspecified severe protein-calorie malnutrition; G93.41 Metabolic encephalopathy; E87.1 Hypo-osmolality and hyponatremia; L03.115 Cellulitis of right lower limb; I10 Essential (primary) hypertension; B35.6 Tinea cruris; E11.42 Type 2 diabetes mellitus with diabetic polyneuropathy; E11.51 Type 2 diabetes mellitus with diabetic peripheral angiopathy without gangrene; I48.91 Unspecified atrial fibrillation; E86.0 Dehydration; E11.65 Type 2 diabetes mellitus with hyperglycemia; N39.0 Urinary tract infection, site not specified; E78.5 Hyperlipidemia, unspecified; F32.9 Major depressive disorder, single episode, unspecified; I87.8 Other specified disorders of veins; I87.2 Venous insufficiency (chronic) (peripheral); N45.1 Epididymitis; E03.9 Hypothyroidism, unspecified; E11.621 Type 2 diabetes mellitus with foot ulcer; L97.418 Non-pressure chronic ulcer of right heel and midfoot with other specified severity; E87.5 Hyperkalemia; Z95.5 Presence of coronary angioplasty implant and graft; Z89.512 Acquired absence of left leg below knee; Z80.3 Family history of malignant neoplasm of breast; Z82.49 Family history of ischemic heart disease and other diseases of the circulatory system; Z83.3 Family history of diabetes mellitus; Z83.6 Family history of other diseases of the respiratory system; Z68.37 Body mass index [BMI] 37.0-37.9, adult
CPT/HCPCS: 36556; 76770; 82962; 83880; 84439; 97110-GP; A4628; J0171; J0696; J1642; J1815; J1956; J2060; J2270; J2704; J3490; J7030; J7050; J7620; P9047; Q0092